=== PATIENT | female | born 1970 | race Caucasian/White ===

== ENCOUNTER 2019-12-08 20:01 | Emergency (ER) | payer OTHER ==
[~2019-12-08] VITALS: Ht 167.6 cm; Wt 113.4 kg
[~2019-12-08 20:01] MED LIST: CELEXA20 MG PO; OMEPRAZOLE40 MG PO
[2019-12-08 20:30] LABS: URINE BLOOD 3+ (Negative); URINE CLARITY CLEAR; URINE COLOR YELLOW; URINE GLUCOSE-RANDOM TRACE (Negative); URINE KETONES NEGATIVE (Negative); URINE LEUKOCYTES-REFLEX NEGATIVE (Negative); URINE PROTEIN 2+ (Negative); URINE SPECIFIC GRAVITY >= 1.030 (1.005-1.030); URINE UROBILINOGEN 0.2 E.U./dl (0.2-1.0)
[2019-12-08 20:31] LABS: URINE BILIRUBIN 1+ (Negative); URINE NITRITE-REFLEX POSITIVE (Negative)
[2019-12-08 20:37] LABS: ABSOLUTE BASOPHILS 0.1 thou/uL (0.0-0.2); ABSOLUTE EOSINOPHILS 0.1 thou/uL (0.0-0.7); ABSOLUTE LYMPHOCYTES 1.7 thou/uL (0.8-5.3); ABSOLUTE MONOCYTES 0.5 thou/uL (0.0-1.2); ABSOLUTE NEUTROPHILS 7.8 thou/uL (1.6-8.1); BASOPHILS 0.7 %; EOSINOPHILS 0.7 %; HEMATOCRIT 41.5 % (37.0-47.0); LYMPHOCYTES 16.6 %; MCH 27.8 pg (26.0-34.0); MCHC 33.7 g/dL (28.0-37.0); MCV 82.5 fL (80.0-100.0); MONOCYTES 5.1 %; MPV 9.3 fl. (7.2-11.1); NUCLEATED RBCS 0 /100WBC; PLATELET COUNT* 235 thou/uL (150-400); POLYS 76.9 %; RBC 5.03 mil/uL (4.20-5.00); RDW-CV 13.8 % (10.5-14.5); WBC 10.1 thou/uL (4.0-11.0)
[2019-12-08 20:39] LABS: BACTERIA-REFLEX >30 Many /HPF (None Seen); CASTS None Seen /LPF (None Seen); CRYSTALS None Seen /LPF (None Seen); MUCUS 0-3 Light strn/LPF (None Seen); SQUAMOUS 4-10 Moderate /LPF (0-3); URINE RBC >20 Many /HPF (0-2); URINE WBC-REFLEX 0-5 Rare /HPF (0-5)
[2019-12-08 20:51] LABS: CALCIUM 9.6 mg/dL (8.5-10.1); CREATININE 0.8 mg/dL (0.6-1.3); POTASSIUM 3.9 mmol/L (3.5-5.1)
[2019-12-08 21:03] LABS: TOTAL BILIRUBIN 0.3 mg/dL (<0.1-1.0); TOTAL PROTEIN 7.3 g/dL (6.4-8.2)
[2019-12-08] MEDS ORDERED: ZOFRAN ODT4 MG PO (23:45)
[2019-12-08] MEDS ORDERED: TORADOL 10 MG T10 MG PO (23:45)
[2019-12-08] MEDS ORDERED: MACROBID 100 M100 M1 PO (23:45)
[2019-12-09 00:04] VITALS: BP 148/83
--- NOTE | 2019-12-09 13:23 | EKG ---
[place] [address] ELECTROCARDIOGRAM REPORT Name: EMEKA DENT Room: [facility]#: [id number] Admission: 12/08/19 Attend Phys: Discharge: 12/09/19 Date of : 68 Date of Service: 12/08/192029 Report #: [id number] THIS REPORT FOR: //name// [facility] ED Test Date: 2019-12-08 Test Time: 20:30:59 Pat Name: EMEKA DENT Department: Room: Gender: Crnp: [place] : 1970 Requested By: Vikki Doss Order Number: [id number] MD: Randall Gotti Measurements Intervals [place] Rate: 74 P: 7 IN: 147 QRS: 6 QRSD: 89 T: 2 QT: 399 QTc: 443 Interpretive Statements Sinus rhythm Atrial premature complex No previous ECG available for comparison Electronically Signed On 12-09-2019 13:23:39 CDT by Randall Gotti [email or web address] <ELECTRONICALLY SIGNED> By: Randall Gotti MD, [facility] 12/09/19 1323 29 29 Randall Gotti MD, FACC /EPI
== END 2019-12-09 00:05 | disposition home or self-care (01) ==
LOC: M.ERS 20:01
PROVIDERS: Nurse Practitioner Family
DX: N39.0 Urinary tract infection, site not specified (principal); R19.7 Diarrhea, unspecified; E03.9 Hypothyroidism, unspecified; Z90.710 Acquired absence of both cervix and uterus; Z79.899 Other long term (current) drug therapy; Z88.0 Allergy status to penicillin

== ENCOUNTER 2019-12-30 01:00 | Emergency (ER) | payer OTHER ==
[~2019-12-30] VITALS: Ht 167.6 cm; Wt 113.4 kg
[~2019-12-30 01:00] MED LIST changes: +MACROBID 100 M100 M1 PO; +TORADOL 10 MG T10 MG PO; +ZOFRAN ODT4 MG PO
[2019-12-30] MEDS ORDERED: LEVO-T50 MCG PO (01:10)
[2019-12-30 01:13] LABS: URINE BILIRUBIN NEGATIVE (Negative); URINE BLOOD 3+ (Negative); URINE CLARITY CLEAR; URINE COLOR YELLOW; URINE GLUCOSE-RANDOM NEGATIVE (Negative); URINE KETONES NEGATIVE (Negative); URINE LEUKOCYTES-REFLEX NEGATIVE (Negative); URINE NITRITE-REFLEX NEGATIVE (Negative); URINE PROTEIN NEGATIVE (Negative); URINE SPECIFIC GRAVITY >= 1.030 (1.005-1.030); URINE UROBILINOGEN 0.2 E.U./dl (0.2-1.0)
[2019-12-30 01:23] LABS: CASTS None Seen /LPF (None Seen); CRYSTALS None Seen /LPF (None Seen); SQUAMOUS 0-3 Few /LPF (0-3); URINE RBC 0-2 Rare /HPF (0-2); URINE WBC-REFLEX 0-5 Rare /HPF (0-5)
[2019-12-30 01:37] LABS: CALCIUM 9.6 mg/dL (8.5-10.1); CREATININE 0.7 mg/dL (0.6-1.3); POTASSIUM 3.5 mmol/L (3.5-5.1)
[2019-12-30 01:42] LABS: ALBUMIN 4.1 g/dL (3.4-5.0); TOTAL BILIRUBIN 0.3 mg/dL (<0.1-1.0); TOTAL PROTEIN 6.9 g/dL (6.4-8.2)
[2019-12-30] MEDS ORDERED: ZOFRAN ODT4 MG SUBLING (01:44)
[2019-12-30] MEDS ORDERED: PERCOCET 5-3251 EACH PO (01:44)
[2019-12-30] MEDS ORDERED: FLOMAX0.4 MG PO (01:44)
[2019-12-30] MEDS ORDERED: CIPROFLOXACIN500 M1 PO (01:44)
[2019-12-30 02:07] LABS: ABSOLUTE BASOPHILS 0.1 thou/uL (0.0-0.2); ABSOLUTE EOSINOPHILS 0.2 thou/uL (0.0-0.7); ABSOLUTE LYMPHOCYTES 2.8 thou/uL (0.8-5.3); ABSOLUTE MONOCYTES 0.6 thou/uL (0.0-1.2); ABSOLUTE NEUTROPHILS 4.5 thou/uL (1.6-8.1); BASOPHILS 0.8 %; EOSINOPHILS 2.3 %; HEMATOCRIT 40.2 % (37.0-47.0); HEMOGLOBIN 13.5 gm/dL (12.0-15.0); LYMPHOCYTES 34.2 %; MCH 27.7 pg (26.0-34.0); MCHC 33.6 g/dL (28.0-37.0); MCV 82.4 fL (80.0-100.0); MONOCYTES 7.8 %; NUCLEATED RBCS 0 /100WBC; PLATELET COUNT* 223 thou/uL (150-400); POLYS 54.9 %; RBC 4.87 mil/uL (4.20-5.00); RDW-CV 13.8 % (10.5-14.5); WBC 8.1 thou/uL (4.0-11.0)
[2019-12-30 02:22] VITALS: BP 159/73
== END 2019-12-30 02:23 | disposition home or self-care (01) ==
LOC: M.ERS 01:00
PROVIDERS: Family Medicine
DX: N20.0 Calculus of kidney (principal); E03.9 Hypothyroidism, unspecified; Z88.0 Allergy status to penicillin; Z90.710 Acquired absence of both cervix and uterus